=== PATIENT | female | born 1965 | race American Indian/Alaskan Native ===

== ENCOUNTER 2018-02-13 10:20 | Emergency (ER) | payer BC, MEDICAID ==
[2018-02-13 10:20] VITALS: BMI 22.4
[2018-02-13 10:44] VITALS: BP 144/82; PULSE 54; RESP 18; TEMP 99.1; O2SAT 100
[2018-02-13] MEDS ORDERED: Naproxen 550 mg Tab PO STA (11:23)
--- NOTE | 2018-02-13 11:36 | C.PDOC ---
History Of Present Illness 52 year old female, whose PMHx includes right knee injury and HTN, presents to the ED for evaluation of right knee pain began two weeks ago and worsened over the past day. Pain aggravated by movement. Patient states she had a tear in her knee around four year go. She had MRI scan of her knee and underwent physical therapy at the time. Patient has been taking Tylenol, Ibuprofen and applying ice to the area without relief. She denies any recent injury/trauma to the area , swelling, change in sensation, chest pain, or shortness of breath. Time Seen by Provider: 02/13/18 11:08 Chief Complaint (Nursing): Lower Extremity Problem/Injury History Per: Patient History/Exam Limitations: no limitations Onset/Duration Of Symptoms: Days Current Symptoms Are (Timing): Worse Recent travel outside of the [place]: No - Knee Description Of Injury: denies: Fell, Struck With Object, Struck Against Object, Twisted Past Medical History Reviewed: Historical Data, Nursing Documentation, Vital Signs Vital Signs: Last Vital Signs Temp 99.1 F 02/13/18 10:41 Pulse 54 L 02/13/18 10:41 Resp 18 02/13/18 10:41 BP 144/82 02/13/18 10:41 Pulse Ox 100 02/13/18 12:08 - Medical History PMH: HTN Denies: Chronic Kidney Disease Surgical History: No Surg Hx - [facility] Procedures D & C NEC (01/03/14) Family History: States: Unknown Family Hx - Social History Hx Tobacco Use: No Hx Alcohol Use: No Hx Substance Use: No - Immunization History Hx Tetanus Toxoid Vaccination: No Hx Influenza Vaccination: No Hx Pneumococcal Vaccination: No Review Of Systems Cardiovascular: Negative for: Chest Pain Respiratory: Negative for: Shortness of Breath Musculoskeletal: Positive for: Other (right knee pain ) Skin: Negative for: Other (trauma/injury to right knee ) Physical Exam - Physical Exam Appears: Non-toxic, No Acute Distress Skin: Normal Color, Warm, Dry Head: Atraumatic, Normacephalic Eye(s): bilateral: Normal Inspection, EOMI Nose: Normal Oral Mucosa: Moist Neck: Supple Chest: Symmetrical Respiratory: No Accessory Muscle Use Extremity: Normal ROM (right knee ), No Tenderness, No Pedal Edema, No Calf Tenderness, Capillary Refill (less than 2 seconds ), No Deformity, No Swelling Pulses: Left Dorsalis Pedis: Normal, Right Dorsalis Pedis: Normal Neurological/Psych: Oriented x3, Normal Speech, Normal Cognition, Normal Motor, Normal Sensation ED Course And Treatment O2 Sat by Pulse Oximetry: 100 Progress Note: PT was offered XR, and declines at this time. Naproxen PO given. Knee brace applied by technology project manager and was checked by me. Knee brace applied by technology project manager. Patient is stable for discharge and is advised to follow up with her ortho within 1-2 days for further evaluation and/or return to the ED if symptoms persist or worsen. Disposition - Disposition Referrals: Getachew Osborne III, MD [Staff Provider] - Disposition: HOME/ ROUTINE Disposition Time: 11:34 Condition: STABLE Additional Instructions: Rest, ice and elevate the area. Follow up with the bone doctor in 1-2 days. Prescriptions: Ibuprofen [Motrin] 400 mg PO Q6 PRN #20 tab PRN Reason: Fever Instructions: Knee Pain (DC) Forms: [employer] ([place]ani) - Clinical Impression Clinical Impression: Knee pain - PA / WILDERNESS GUIDE / Resident Statement MD/DO has reviewed & agrees with the documentation as recorded. - Scribe Statement The provider has reviewed the documentation as recorded by the Scribe (Radha Patrick) All medical record entries made by the Scribe were at my direction and personally dictated by me. I have reviewed the chart and agree that the record accurately reflects my personal performance of the history, physical exam, medical decision making, and the department course for this patient. I have also personally directed, reviewed, and agree with the discharge instructions and disposition.
[2018-02-13] MEDS ORDERED: Naproxen 550 mg Tab PO ONE (11:37)
== END 2018-02-13 11:45 | disposition home or self-care (01) ==
LOC: C.ER 10:20
DX: M25.561 Pain in right knee (principal)